=== PATIENT | female | born 1970 | race African-American/Black ===

== ENCOUNTER 2018-12-24 16:41 | Emergency (ER) | payer MEDICAID, SELFPAY ==
[2018-12-24 16:44] VITALS: BP 129/89; PULSE 102; RESP 16; TEMP 36.8; O2SAT 99
--- NOTE | 2018-12-24 17:25 | ED.GENADUL_ITS ---
Discharge Plan Disposition Patient Disposition: HOME Condition: Stable Discharge Details Chief Complaint: Orthopedic Clinical Impression: Effusion of knee Primary Care Provider: Armaan Hammonds ED Provider: Kasia Chakraborty Home Meds and New Rx's Prescriptions: Continued ibuprofen 800 mg tablet 800 mg PO TID PRN (Reason: pain) Qty: 50 RF: 1 lamotrigine 100 mg tablet 100 mg PO 1 AM,1/2 PM Qty: 45 RF: 1 gabapentin 300 mg capsule 300 mg PO QID Qty: 120 RF: 3 multivitamin [Daily Vitamin] 1 EACH tablet 1 ea PO DAILY RF: 0 cholecalciferol (vitamin D3) 1,000 UNIT capsule 1,000 unit PO DAILY RF: 0 Fiber tabs OTC DAILY RF: 0 Suboxone 1 EACH film 20 mg PO DAILY RF: 0 No Action methylphenidate HCl [Ritalin] 20 mg tablet 20 mg PO BID MDD 2 Qty: 60 RF: 0 Discharge Instructions Instructions: Knee Pain (ED) Additional Instructions: Please return immediately to the emergency department if you develop any new or worsening symptoms or if you become otherwise concerned. It is extremely important that you make an appointment to be seen by Dr. Haney and your primary care doctor soon as possible and follow-up for this visit. Stand Alone Forms: Work Release Referrals: Armaan Hammonds DO [Primary Care Provider] - Discharge Data Discharge Date/Time-TO BE ENTERED AT DEPARTURE: 12/24/18 19:31 Medical Decision Making Kindra Herzog is a 48-year-old woman with history of attention deficit, Lyme disease in the past presenting to the emergency department with knee pain and swelling over the past month, worse yesterday. On exam patient is well and nontoxic appearing. The knee has no inflammatory changes but does have an effusion, there is tenderness over the joint at the medial and lateral aspects. No posterior calf tenderness or popliteal tenderness. Concern for possible meniscal injury, doubt bony pathology. Exam/history not consistent with septic arthritis, gout, other acute emergent life/limb threatening process. Her screening x-rays, anticipate discharge home with outpatient follow-up with orthopedics. Knee x-ray negative per radiology. Patient reports that she has knee immobilizer at home. I recommended use of the immobilizer and outpatient follow-up with OrthO, patient was placed on Ortho list for follow-up. I had a lengthy discussion with the patient regarding home care, return to emergency department precautions, and importance of outpatient follow-up with orthopedics. Patient verbalizes understanding of the plan and is amenable. Medical Records Medical records reviewed: Yes I reviewed the patient's medical records. HPI General Mode of arrival: ambulatory . Date/Time Provider Initiated Documentation: 12/24/18 16:52 . Limitations to Documentation: no limitations . Information obtained by: patient, RN notes reviewed and old records reviewed . HPI Narrative: Kindra Herzog is a 48-year-old woman with history of attention deficit disorder, Lyme disease in the past presents emergency department knee pain. Patient reports that approximately 1 month ago she was shoveling when she had a twisting injury, and had pain in the right knee. She had some swelling of the knee at that time. Pain and swelling has been improving until yesterday, when patient felt that pain and swelling began to worsen again. There was no new trauma or inciting event. Patient reports that she was limping at work, and her employer told her to come to the emergency department to be evaluated. She reports that pain is worse with bending the knee, however she is able to fully flex it. She denies weakness, numbness, tingling, redness or rash, fever, vomiting, diarrhea, other joint pain. She reports that she feels very well and otherwise in her usual state of health. Was treated for Lyme disease with antibiotics in the past. No recent illness, has been eating and drinking as usual. Related Data Home Medications Medication Instructions Recorded Confirmed cholecalciferol (vitamin D3) 1,000 unit PO DAILY 01/05/14 12/24/18 multivitamin [Daily Vitamin] 1 ea PO DAILY 01/05/14 12/24/18 Suboxone 20 mg PO DAILY 02/22/18 12/24/18 ibuprofen 800 mg tablet 800 mg PO TID PRN #50 tab 07/26/18 12/24/18 lamotrigine 100 mg tablet 100 mg PO 1 AM,1/2 PM #45 tab 08/30/18 12/24/18 gabapentin 300 mg capsule 300 mg PO QID #120 cap 12/20/18 12/24/18 methylphenidate 20 mg tablet 20 mg PO BID #60 tab MDD 2 12/30/18 Previous Rx's Medication Instructions Recorded ibuprofen 800 mg tablet 800 mg PO TID PRN #50 tab 07/26/18 lamotrigine 100 mg tablet 100 mg PO 1 AM,1/2 PM #45 tab 08/30/18 gabapentin 300 mg capsule 300 mg PO QID #120 cap 12/20/18 methylphenidate 20 mg tablet 20 mg PO BID #60 tab MDD 2 12/30/18 Allergies Allergy/AdvReac Type Severity Reaction Status Date / Time Penicillins Allergy Unknown throat Verified 12/24/18 16:47 swelling General Stated Complaint: Orthopedic ARPIT: 5 Review of Systems Review of Systems Constitutional: denies fevers Eyes: denies eye pain ENT: denies facial pain, dental pain, sore throat Cardiovascular: denies chest pain Respiratory: denies SOB, cough GI: denies abdominal pain, vomiting, diarrhea : denies flank pain MSK: denies back pain, neck pain, myalgias, reports right knee pain Skin: denies rash Neuro: denies headaches, numbness, weakness PFSH Medical History Tobacco use disorder (Acute) Opioid dependence (Acute) Major depression (Acute) Attention deficit hyperactivity disorder Chronic back pain (Acute) Depressive disorder Endometriosis Lyme disease Opioid dependence in remission Social History adopted: Yes household members: family lives independently: Yes number of children: 1 current occupational status: employed 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, [employer] what type of physical activity do you participate in: other details: yoga frequency: 3-4 times per week duration: 30-45 minutes/day Smoking and Tabacco status: Current every day tobacco type: cigarettes quit status: not considering quitting alcohol intake: never substance use type: does not use Seatbelt use: always Drives intoxicated or rides with intoxicated auto driver: No working smoke detector in home: Yes fire extinguisher in home: Yes carbon monox detector in home: Yes Exam Narrative Exam Narrative: Constitutional: well and [id number]-rhddyckwy, pleasant, conversing normally HENT: head atraumatic/normocephalic/normal inspection, mucous membranes moist Eyes: conjunctiva normal, sclera normal, pupils 3mm b/l Neck: no stridor, normal ROM, trachea midline Chest: normal inspection Resp: normal work of breathing, LCTAB Cardio: normal rate, normal rhythm, no murmur appreciated GI: abdomen soft, non-tender, non-distended Back: normal inspection, no rash Skin: warm, dry, normal color, no rash Neuro: alert, not altered, grossly non-focal, normal tone Ext: Right knee without warmth, erythema, or other skin changes. Mild effusion. Medial and lateral aspects of the knee joint with mild tenderness to palpation. Patella, femur, tibia nontender to palpation. Able to flex and extend fully. Pain with varus stress. No pain with valgus stress, normal anterior and posterior drawer test Psych: normal mood, normal affect, normal behavior Course Vital Signs Temperature 36.8 C 12/24/18 16:44 Pulse 102 H 12/24/18 16:44 Respiratory Rate 16 12/24/18 16:44 Blood Pressure 129/89 12/24/18 16:44 Pulse Oximetry 99 12/24/18 16:44 Temperature 36.8 C 12/24/18 16:44 Temperature Source Skin 12/24/18 16:44 Pulse 102 H 12/24/18 16:44 Respiratory Rate 16 12/24/18 16:44 Respiratory Effort Non-Labored 12/24/18 16:48 Blood Pressure 129/89 12/24/18 16:44 Pulse Oximetry 99 12/24/18 16:44 Oxygen Delivery Method Room Air 12/24/18 16:44 Oxygen Flow Rate 0 12/24/18 16:44 Pain Level 7 12/24/18 16:48
--- NOTE | 2018-12-24 17:34 | DI.RAD_ITS ---
SYMPTOMS/DIAGNOSIS: KNEE PAIN, NO TRAUMA LEFT KNEE: The bony structures are normally mineralized, joint spaces intact. A joint effusion is demonstrated. There is no trauma history in this patient and there is no evidence of an acute fracture or dislocation.
[2018-12-24] MEDS: Ibuprofen 400 MG TAB PO (17:38)
--- NOTE | 2018-12-24 19:15 | DI.VRAD_ITS ---
EXAM: XR Left Knee, 3 Views EXAM DATE/TIME: 12/24/2018 5:35 PM CLINICAL HISTORY: 48 years old, female; Signs and symptoms; Other: Knee pain, no trauma; Prior surgery; Surgery date: 6+ months; Surgery type: Some repair due to skiing acc TECHNIQUE: XR Left knee 3 views. COMPARISON: CR LEFT KNEE 3 VIEW COMPLETE 05/16/2012 1:26 PM FINDINGS: Bones/joints: No acute fracture identified. There is a new 9mm bony protrusion overlying the tibial spine on the frontal radiograph. On the lateral radiograph, it is anterior to the tibial spine. This could represent a bony spur. It could be a source of pain. Soft tissues: There is a suprapatellar knee effusion. IMPRESSION: 1. No acute fracture identified. 2. Suprapatellar knee effusion. 3. Bony protrusion anterior to the tibial spine. This is new from prior examination. It could represent a bony spur. It could be a source of pain. Dictated and Authenticated by: Franci Parks MD. Ordering:JOHN Pedroza MD
[2018-12-24 19:29] VITALS: BP 116/76; PULSE 81; RESP 16; O2SAT 97
== END 2018-12-24 19:31 | disposition home or self-care (01) ==
PROVIDERS: Emergency Provider Student in an Organized Health Care Education/Training Program; PCP Family Medicine
DX: M25.462 Effusion, left knee (principal); X50.9XXA Other and unspecified overexertion or strenuous movements or postures, initial encounter; Y93.H1 Activity, digging, shoveling and raking
CPT/HCPCS: 73562; 99283

== ENCOUNTER 2019-04-08 15:29 | Outpatient (REF) | payer OTHER, SELFPAY | END 2019-04-08 15:49 | LOC: LBN 15:29 | PROVIDERS: PCP Family Medicine; Visit Provider Family Medicine | DX: N39.0 Urinary tract infection, site not specified (principal) | CPT/HCPCS: 87077; 87086 ==

== ENCOUNTER 2020-06-07 13:39 | Outpatient (CLI) | payer OTHER, SELFPAY ==
--- NOTE | 2020-06-07 11:30 | DI.RAD_ITS ---
EXAM: XR KNEE LT 4V AP,LAT,TRAE,PAT CLINICAL HISTORY: left knee pain TECHNIQUE: 2D digital imaging was performed. COMPARISON: CR XR knee LT 3V AP,lat,trae from 12/24/2018 FINDINGS: There is ggxu-[id number] narrowing of the medial femoral tibial joint. There is spurring from the f emoral condyles and tibial plateaus. The patellofemoral joint is well maintained shows mild periarti cular spurring. The question of a small joint effusion. There is spurring at the tibial spines. IMPRESSION: Gjmg-uq-mqrzredr degenerative changes.
== END 2020-06-07 13:59 ==
PROVIDERS: PCP Family Medicine; Referring Provider Family Medicine; Visit Provider Physician Assistant Surgical
DX: M25.562 Pain in left knee (principal); M17.12 Unilateral primary osteoarthritis, left knee
CPT/HCPCS: 73564

== ENCOUNTER 2020-06-28 01:06 | Outpatient (CLI) | payer OTHER, SELFPAY ==
--- NOTE | 2020-06-28 12:00 | DI.MRI_ITS ---
EXAM: MR LOWER JOINT LT WO CLINICAL HISTORY: L KNEE PAIN, S/P TRAUMATIC INJURY,M23.92,INTERNAL DERANGEMENT. TECHNIQUE: Multiplanar multisequence MRI was performed. COMPARISON: CR XR KNEE LT 4V AP,LAT,TRAE,PAT from 06/07/2020 FINDINGS: There is a moderate-sized joint effusion and small Smith's cyst. There is a linear defect at the ape x of the patellar cartilage and adjacent edema. There is some spurring from the femoral condyles and tibial plateaus. There is also cartilage thinning over the medial femoral condyle. There is edema around the anterior cruciate ligament but no evidence of a full-thickness tear. The posterior crucia te ligament, lateral collateral ligament complex and extensor mechanism appear intact. There is some edema around the medial collateral ligament but no focal tear. The lateral meniscus appears intact. The medial meniscus is peripherally displaced consistent with degenerative changes. There is blunt ing of the posterior horn and a tear seen medially extending in radial orientation. There is no evid ence of a bone contusion. IMPRESSION: Radial tear of the posterior horn of the medial meniscus with irregularity. ACL and MCL sprains. De generative changes of the medial femoral tibial and patellofemoral cartilage. DATA REPOSITORY:
== END 2020-06-28 01:26 ==
PROVIDERS: PCP Family Medicine; Visit Provider Student in an Organized Health Care Education/Training Program
DX: S83.242A Other tear of medial meniscus, current injury, left knee, initial encounter (principal); S83.512A Sprain of anterior cruciate ligament of left knee, initial encounter; S83.412A Sprain of medial collateral ligament of left knee, initial encounter; M17.12 Unilateral primary osteoarthritis, left knee
CPT/HCPCS: 73721

== ENCOUNTER 2020-07-09 02:31 | Outpatient (CLI) | payer OTHER, SELFPAY ==
[2020-07-10 23:51] LABS: COVID-19 RT-PCR Result NEGATIVE (Negative)
== END 2020-07-09 02:51 ==
PROVIDERS: PCP Family Medicine; Visit Provider Student in an Organized Health Care Education/Training Program
DX: Z11.59 Encounter for screening for other viral diseases (principal); Z01.818 Encounter for other preprocedural examination
CPT/HCPCS: U0003

== ENCOUNTER 2020-07-14 08:20 | Day surgery (SDC) | payer OTHER, SELFPAY ==
[2020-07-14] VITALS (10 sets, daily range): BP systolic 80–126; BP diastolic 55–73; PULSE 56–87; RESP 10–17; TEMP 36.2–36.6; O2SAT 94–100
[2020-07-14] MEDS: Lactated Ringers 1,000 ML 80 ML IV (09:10)
[2020-07-14] MEDS: Celecoxib 200 MG CAP 400 MG PO (10:19)
[2020-07-14] MEDS: Acetaminophen 500 MG TAB 1000 MG PO (10:19)
--- NOTE | 2020-07-14 10:36 | HPE_ITS ---
Date of service: 07/14/20 Time of Service: 10:36 Assessment and Plan Assessment and plan (1) Tear of medial meniscus of left knee: Status: Acute Assessment and plan: Kindra is a 50-year-old active female who has had persistent left knee pain as well as mechanical symptoms. She has an MRI which shows a complex tear of the medial meniscus. There is some degenerative change but is not overwhelming. Therefore, I discussed treatment options with Kindra. Given the acuity of the symptoms and the mechanical nature, surgery would be recommended. It is possible that she continues have some pain in this knee or she has some worsening arthritis. However, the mechanical symptoms should improve and allow her to increase her activities. I have validated her concerns about postoperative pain. We will give her more acute pain medications and we usually do given that she is on Suboxone. The recommendation is to continue Suboxone through the acute pain episode. Additionally, we will perform an abductor canal block today to help control her intraoperative and postoperative pain. I reviewed the risk of the procedure to include bleeding, infection, pain, stiffness, damage to nerves and vessels, damage to muscle tendons, worsening arthritis, osteonecrosis, re-tear, need for repeat procedures, blood clot. Despite these risk, she elects to proceed. Qualifiers: Tear current or old: current Encounter type: subsequent encounter Meniscus tear of knee type: complex Qualified Code(s): S83.232D - Complex tear of medial meniscus, current injury, left knee, subsequent encounter History of Present Illness History of Present Illness Chief Complaint: Left Knee Medial Meniscus Tear Narrative: Kindra is a 50-year-old who have seen in the office for persistent left knee pain with very mechanical symptoms and clicking. She has tried activity modification. She was using anti-inflammatories. She does have chronic pain issues and takes Suboxone at baseline for this. Given the limitation she was having on a daily life, an MRI was recommended. This was reviewed with her over the phone and the decision was made to proceed with surgery. She reports no changes to her knee pain. Bothers her with all weightbearing activities and continues to have painful clicking popping, and giving way at times. She denies numbness or tingling. She denies previous injury or surgery to this left knee. She is anxious about pain control postoperatively. She has had no chest pain or shortness of breath. She has been a regular health without any sick contacts. She did have a COVID-19 test and has been quarantined since then. Review of Systems All systems reviewed & are unremarkable except as noted in HPI and below PFSH Medical History Attention deficit hyperactivity disorder Dx at age 11yrs Chronic back pain (Acute) Depressive disorder Dx 2000 secondary to situational issues/ had counseling off and on and Rx Endometriosis Lyme disease Chronic Dx 2003 Major depression (Chronic) Onychomycosis (Acute) Opioid dependence (Acute) Opioid dependence in remission in recovery since 2002 Tobacco use disorder (Acute) Surgical History Abdominal hysterectomy Endometriosis 2004 Arthroplasty of knee L knee x 2 Bilateral salpingectomy with oophorectomy 2004 Diagnostic Laproscopy secondary to endometriosis UCL R thumb 2002 Social History Smoking/Tobacco Use Status: Current every day Tobacco Type: cigarettes Years smoked: 25 Quit status: not considering quitting Alcohol Intake: never Drug use: Current Sobriety Substance use type: does not use Adopted: Yes Caregiver/Support person: No Household members: family Number of Children: 1 Education Level: college Details: Currently attending college part-time for nursing. 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[employer], [employer] Current gender identity: female What type of physical activity do you participate in: other Details: yoga Duration: 30-45 minutes/day Frequency: 3-4 times per week Seatbelt use: always Drive intox or ride w/intox national dedicated truck driver: No Working smoke detector in home: Yes Fire extinguisher in home: Yes Carbon monox detector in home: Yes Do you feel safe at home: Yes Additional Social history: not in a relationship Meds Home Medications and Allergies Home Medications Medication Instructions Recorded Confirmed Type Fiber Tabs Otc DAILY 01/05/14 06/16/19 Clinic cholecalciferol (vitamin D3) 1,000 unit PO DAILY 01/05/14 07/14/20 History multivitamin [Daily Vitamin] 1 ea PO DAILY 01/05/14 07/14/20 History ibuprofen 800 mg tablet 800 mg PO TID PRN #50 tab 07/26/18 07/14/20 Rx gabapentin 300 mg capsule 300 mg PO QID #120 cap 04/02/19 07/14/20 Rx methylphenidate HCl 20 mg tablet 20 mg PO BID tab 11/18/19 07/14/20 History lamotrigine 100 mg tablet 100 mg PO BID 05/17/20 07/12/20 History buprenorphine 12 mg-naloxone 3 mg 1 film BC Q24H #28 each MDD 20 mg 05/31/20 07/14/20 Rx sublingual film buprenorphine buprenorphine 8 mg-naloxone 2 mg 1 film SL DAILY #28 each MDD 20 mg 05/31/20 07/14/20 Rx sublingual film buprenorphine Allergies Allergy/AdvReac Type Severity Reaction Status Date / Time Penicillins Allergy Unknown throat Verified 07/14/20 08:30 swelling Exam Const General: cooperative, comfortable and anxious Nutritional Appearance: average body habitus Orientation: alert, awake and oriented x3 Resp Effort & Inspection: normal respiratory effort Auscultation: clear to auscultation bilaterally Cardio Rate: regular rate Rhythm: regular rhythm Results Imaging Imaging Studies: MRI of the left knee was discussed with the patient over the phone. It demonstrates a complex type tear the posterior horn with a primary radial component. The root appears to be attached. There is some mild degenerative changes seen mostly of the medial femur and medial tibia. There is displacement of the radial component of the tear. Last Vital Signs Temp 36.6 C 07/14/20 08:25 Pulse 87 07/14/20 08:25 Resp 17 07/14/20 08:25 BP 126/72 07/14/20 08:25 Pulse Ox 99 07/14/20 08:25
[2020-07-14] MEDS: ceFAZolin 2 GM/50 ML BAG IVPB (10:37)
[2020-07-14] MEDS: Bupivacaine LIPOSOME/PF 133 MG/10 ML VIAL IJ (10:45)
[2020-07-14] MEDS: Bupivacaine 0.5% Pres-Free 30 ML VIAL ×2 (10:45→11:02)
--- NOTE | 2020-07-14 11:13 | W.PM.DSUDISC ---
Discharge Plan Disposition Patient Disposition: HOME Condition: Good Discharge Details Reason For Visit: Left Knee Arthroscopy Attending Provider: Jhonny Haney Primary Care Provider: Armaan Hammonds Home Meds and New Rx's Prescriptions: New ibuprofen 600 mg tablet 600 mg PO TID PRN (Reason: pain) Qty: 30 RF: 0 oxycodone 10 mg tablet 10 mg PO Q4H PRN (Reason: pain) Qty: 18 RF: 0 acetaminophen 500 mg capsule 500 mg PO Q4H PRN (Reason: pain) Qty: 30 RF: 0 Continued buprenorphine-naloxone [Suboxone] 8-2 mg film 1 film SL DAILY MDD 20 mg buprenorphine Qty: 28 RF: 0 buprenorphine-naloxone [Suboxone] 12-3 mg film 1 film BC Q24H MDD 20 mg buprenorphine Qty: 28 RF: 0 methylphenidate HCl [Ritalin] 20 mg tablet 20 mg PO BID RF: 0 lamotrigine 100 mg tablet 100 mg PO BID RF: 0 ibuprofen 800 mg tablet 800 mg PO TID PRN (Reason: pain) Qty: 50 RF: 1 gabapentin 300 mg capsule 300 mg PO QID Qty: 120 RF: 3 multivitamin [Daily Vitamin] 1 EACH tablet 1 ea PO DAILY RF: 0 cholecalciferol (vitamin D3) 1,000 UNIT capsule 1,000 unit PO DAILY RF: 0 Fiber tabs OTC DAILY RF: 0 Discharge Instructions Stand Alone Forms: [facility]th[facility] Referrals: Jhonny Haney MD [ [facility] STAFF PHYSICIAN] - Equipment/Supplies: Partial Weight Bearing Crutches Activity:: Activity as Tolerated Remove Dressings/Wound Care:: 72 hours Shower/Bathe:: 72 hours Diet:: As Tolerated Discharge Orders Discharge Orders: Discharge Order (Routine); Ordered 07/14/20 Ordered By: Jhonny Haney DS: Diagnosis Discharge Diagnosis (1) Tear of medial meniscus of left knee: Status: Acute
--- NOTE | 2020-07-14 12:26 | ROE_ITS ---
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 This was confirmed based on MRI and exam findings. Nonoperative measures were exhausted but disability and pain persisted. I discussed knee arthroscopy with meniscal intervention with the patient. I reviewed the risks of the procedure to include, but not limited to, bleeding, infection, pain, stiffness, damage to nerves or vessels, recurrence, blood clot. Despite these risks, the patient elected to proceed. Findings: A diagnostic arthroscopy was performed with the following findings: Suprapatellar Pouch: Mild inflammatory changes, no loose bodies Medial Compartment: Complex medial meniscal tear with primary radial component of the posterior horn, intact meniscal root, a focal swath of grade IV chondromalacia extending from anterior to posterior, 8 mm at its widest, no loose bodies Notch: ACL and PCL were intact Lateral Compartment: No meniscal tear, intact meniscal root, grade I chondromalacia of the tibia, no loose bodies Patellofemoral Compartment: Grade IV chondromalacia at the base of the trochlea with very mild chondromalacia of the patella, no apparent patellar maltracking Procedure Description: Kindra was greeted in the preoperative holding area where the correct side was identified and marked. The consent was reviewed with the patient and signed. The history and physical was updated. All questions were answered. An adductor canal block was administered by anesthesia. Kindra was taken back to the operating room. The patient was placed into the supine position on the operating room table. A nonsterile tourniquet was placed high onto the leg but not used. All bony prominences were well padded. Prophylactic antibiotics in the form of cefazolin were administered. The left leg was then prepped with Chloraprep and draped in a standard fashion with stockinette and extremity drape. A timeout to confirm correct identity, side and site, procedure, allergies, anesthesia, and medical concerns was performed. The leg was placed into a pneumatic leg packer, [id number]. A standard lateral portal was made at the lateral border of the patella tendon in line with the inferior pole of the patella, soft spot. The skin and deep tissue was incised s harply and the blunt trochar was inserted atraumatically. A diagnostic arthroscopy was performed and the findings are listed above. The suprapatellar pouch had no significant inflammatory change. The patellofemoral articulation showed grade IV chondromalacia at the very central portion of the trochlea but with very minimal patellar chondromalacia. There was good tracking. The lateral gutter had no loose bodies but a small peripheral osteophyte was encountered, and the medial gutter had no loose bodies. The knee was brought into some valgus stress in extension to open the medial compartment. There is a notable anterior lip osteophyte centrally which is not loose but was in between the anterior attachments of the medial and lateral menisci. A medial portal was then made, localized by a spinal needle. The portal was created with an #11 blade through skin and capsule under direct visualization avoiding any meniscal injury. A probe was then inserted into the medial compartment. The medial compartment was fully inspected. The chondral surface of the tibia showed very mild chondromalacia and the surface of the femur showed grade IV chondromalacia and a swath anterior to posterior, mostly around 4 to 6 mm wide with his widest point at 8 mm. There are also a few loose cartilage flaps associated with this and the more anterior aspects. The medial meniscus had a complex tear of the posterior horn with a primary radial component. After evaluation, the meniscus was debrided down to a stable base using a series of biters and arthroscopic roya. It was probed afterwards to confirm that the tear had been removed and the meniscus was stable. Cartilage surfaces were debrided of any flaps, leaving any intact fibers. The notch was then inspected which showed an intact ACL and an intact PCL. The leg was then brought into a figure of 4 position. The lateral compartment was fully inspected with the arthroscope and a probe. The chondral surface of the lateral femur showed no significant chondromalacia. The chondral surface of the lateral tibia showed some grade I chondromalacia. The lateral meniscus had no meniscal tear. The arthroscope was brought back into the suprapatellar pouch and the leg was in full extension. The knee was thoroughly irrigated with the arthroscopic fluid on high flow and pressure. Inflow was stopped and excess fluid was removed. The wounds were closed with 4-0 Nylon. They were dressed with Xeroform, 4x4 gauze, ABD pad, Kerlix and an YUMIKO wrap. A cryo-cuff was applied. The patient tolerated the procedure well and was returned to the [facility] Day Surgery area in a stable condition suffering no known complication.
[2020-07-14] MEDS: oxyCODONE 5 MG TAB 10 MG PO (13:36)
== END 2020-07-14 14:21 | disposition home or self-care (01) ==
PROVIDERS: PCP Family Medicine; Visit Provider Student in an Organized Health Care Education/Training Program
PROC: (CPT 29870; principal; 2020-07-14 10:00)
DX: S83.232A Complex tear of medial meniscus, current injury, left knee, initial encounter (principal); M22.41 Chondromalacia patellae, right knee; F17.210 Nicotine dependence, cigarettes, uncomplicated; F32.9 Major depressive disorder, single episode, unspecified; A69.20 Lyme disease, unspecified; F11.11 Opioid abuse, in remission
CPT/HCPCS: 29881; 76942; NC; J0690; J1100; J2001; J2250; J2405

== ENCOUNTER 2022-03-14 02:49 | Outpatient (CLI) | payer MEDICAID, SELFPAY | END 2022-03-14 02:50 | disposition home or self-care (01) | LOC: LBO 02:49 | PROVIDERS: PCP Family Medicine; Visit Provider Family Medicine ==

== ENCOUNTER 2022-12-22 01:11 | Outpatient (CLI) | payer OTHER, MEDICAID, SELFPAY ==
--- NOTE | 2022-12-22 08:00 | DI.RAD_ITS ---
Exam(s) XR CHEST 2V PA LATERAL EXAM: XR CHEST 2V PA LATERAL CLINICAL HISTORY: SOB, cough, s/p positive home Covid 12/02/22,R06.02,R05.9,R06.01 TECHNIQUE: 2D digital imaging was performed of the chest. Two images were obtained. PA and lateral views were obtained. COMPARISON: No exams were available for comparison FINDINGS: MEDIASTINUM: Normal. HEART: Normal. PULMONARY VASCULATURE: Normal. LUNGS: Clear. PLEURAL SPACE: No pleural effusion or pneumothorax. BONE:Within normal limits for the patient's age. OTHER FINDINGS:Normal. IMPRESSION: No acute pulmonary findings. DATA REPOSITORY: RADIATION DOSE DELIVERED:
== END 2022-12-22 01:31 ==
LOC: DI 01:12
PROVIDERS: PCP Family Medicine; Visit Provider Nurse Practitioner
DX: R05.9 Cough, unspecified (principal); R06.01 Orthopnea; R06.02 Shortness of breath
CPT/HCPCS: 71046

== ENCOUNTER 2023-04-25 19:10 | Outpatient (REF) | payer OTHER, MEDICAID, SELFPAY | END 2023-04-25 19:11 | disposition home or self-care (01) | LOC: LBN 19:10 | PROVIDERS: PCP Family Medicine; Visit Provider Nurse Practitioner Family | DX: R39.15 Urgency of urination (principal); R10.2 Pelvic and perineal pain; R30.0 Dysuria | CPT/HCPCS: 87086 ==

== ENCOUNTER → 2023-07-30 03:16 | Outpatient (CLI) | payer OTHER, SELFPAY ==
--- NOTE | 2023-07-30 | DI.US_ITS ---
Exam(s) MG MAMMO DIAGNOSTIC BI US BREAST LT LIMITED EXAM: MG MAMMO DIAGNOSTIC BI CLINICAL HISTORY: bilat mastodynia,n64.4,bilat breast swelling. COMPARISON: US US BREAST LT LIMITED from 07/30/2023 TECHNIQUE: Craniocaudal and mediolateral oblique Full Field Digital Mammography views of both breast s with Computer Aided Diagnosis followed by Tomosynthesis. Spot compression views of the upper and c entral left breast. Left breast ultrasound. FINDINGS: Mammography/Tomosynthesis: Masses/Architectural Distortion: None seen. Island of dense tissue upper left breast. Microcalcifications: No suspicious pleomorphic-type are seen. Skin Thickening/Nipple Retraction: None. Left breast US: Echotexture: Normal appearance of the glandular tissue. Shadowing: No suspicious foci. Cyst: None. Solid lesions: None seen. 7 millimeter lymph node incidentally noted in the anterior, lateral left b reast. Ductal dilation: None. Axilla: Normal lymph nodes noted in the axilla. IMPRESSION: 1. No evidence of malignancy is noted. 2. Unless there is more urgent need, follow-up screening mammography is recommended, as per [employer] guidelines. BI-RADS Category 1 - Negative Breast Density - Category B - Scattered areas of fibroglandular density A negative radiographic report should not delay biopsy if a dominant or clinically suspicious mass is present. Up to ten percent of cancers are not identified on mammography. A negative report may reinforce clinical impression. Adenosis and dense breasts may obscure an underlying neoplasm. False positive reports average 6 to 10%. Patient will receive a letter notifying them of these results.
== END ==
PROVIDERS: PCP Family Medicine; Visit Provider Family Medicine
DX: Z12.31 Encounter for screening mammogram for malignant neoplasm of breast (principal); N64.4 Mastodynia
CPT/HCPCS: 76642; 77062; 77066; G0279

== ENCOUNTER 2023-11-14 18:02 | Outpatient (REF) | payer OTHER, SELFPAY | END 2023-11-14 18:03 | disposition home or self-care (01) | LOC: LBN 18:02 | PROVIDERS: PCP Family Medicine; Visit Provider Physician Assistant | DX: R05.8 Other specified cough (principal); R07.0 Pain in throat; R09.3 Abnormal sputum | CPT/HCPCS: 87070 ==

== ENCOUNTER 2023-11-16 01:56 | Outpatient (CLI) | payer OTHER, SELFPAY ==
[2023-11-16 11:01] LABS: ALT 32 U/L (14-59); AST 17 U/L (15-37); Albumin 3.7 g/dL (3.4-5.0); Alkaline Phosphatase 143 U/L (46-116); Anion Gap 10.2 mmol/L (3-11); BUN 19 mg/dL (7-18); Bilirubin, Total 0.3 mg/dL (0.2-1.0); CO2 28.8 mmol/L (21.0-32.0); Calcium 10.6 mg/dL (8.5-10.1); Calculated LDL 62 mg/dL (<100); Chloride 101 mmol/L (98-107); Cholesterol 149 mg/dL (<200); Estimated GFR 66.95 (mL/min/1.73m2); Glucose 131 mg/dL (74-106); HDL Cholesterol 71 mg/dL (40-60); Potassium 3.7 mmol/L (3.5-5.1); Sodium 140 mmol/L (136-145); TSH (W/Ref FT4) 0.75 uIU/mL (0.36-3.74); Total Protein 8.4 g/dL (6.4-8.2); Triglyceride 81 mg/dL (<150)
== END 2023-11-16 01:57 | disposition home or self-care (01) ==
LOC: LBO 01:56
PROVIDERS: PCP Family Medicine; Visit Provider Family Medicine
DX: Z87.891 Personal history of nicotine dependence (principal); L65.9 Nonscarring hair loss, unspecified
CPT/HCPCS: 36415; 80053; 80061; 84443

== ENCOUNTER 2024-12-05 15:45 | Outpatient (CLI) | payer MEDICAID, SELFPAY ==
[2024-12-05 16:58] LABS: C-Reactive Protein < 0.50 mg/dL (<or=0.5)
[2024-12-05 21:36] LABS: Rheumatoid Factor <8.6 IU/mL (<12.0)
[2024-12-08 09:53] LABS: Cyclic Citrullinated Peptide <2.5 U/mL (<5.0)
[2024-12-08 11:42] LABS: ANA Interpretation Negative (Negative)
== END 2024-12-05 15:46 | disposition home or self-care (01) ==
LOC: LBO 15:46
PROVIDERS: PCP Family Medicine; Visit Provider Family Medicine
DX: M06.9 Rheumatoid arthritis, unspecified
CPT/HCPCS: 36415; 86200; 86038; 86140; 86431

== ENCOUNTER 2025-02-26 10:11 | Outpatient (CLI) | payer OTHER, MEDICAID, SELFPAY ==
[2025-02-26 14:31] LABS: TSH (W/Ref FT4) 5.65 uIU/mL (0.36-3.74)
[2025-02-26 14:51] LABS: FREE T4 0.92 ng/dL (0.76-1.46)
[2025-02-26 15:14] LABS: Lithium 0.7 mmol/L (0.6-1.2)
== END 2025-02-26 10:12 | disposition home or self-care (01) ==
LOC: LBO 07-09 10:12
PROVIDERS: PCP Family Medicine; Visit Provider Family Medicine
DX: F31.30 Bipolar disorder, current episode depressed, mild or moderate severity, unspecified (principal); F32.A Depression, unspecified
CPT/HCPCS: 36415; 80178; 84439; 84443